=== PATIENT | female | born 1985 | race Caucasian/White ===

== ENCOUNTER → 2016-11-30 | Outpatient (CLI) | payer BC | LOC: LABWHC1 13:50 | PROVIDERS: ATTEND Obstetrics & Gynecology | DX: Z01.812 Encounter for preprocedural laboratory examination (principal) | CPT/HCPCS: 85025; 86850; 86900; 86901 ==

== ENCOUNTER 2016-12-01 07:55 | Day surgery (SDC) | payer BC ==
[2016-11-27 08:38] VITALS: BMI 28.3
[2016-11-30 17:28] LABS: Basophils # (A) 0.1 k/uL (0-0.2); Basophils % (A) 1 %; CH 32.2; CHCM 35.8; Eosinophils % (A) 0 %; HCT 40.6 % (34.0-46.0); HDW 2.67; HGB 14.1 gm/dL (11.4-16.0); Luc # (Auto) 0.07; Luc % (Auto) 1; Lymphocytes # (A) 2.2 k/uL (1.0-4.8); Lymphocytes % (A) 30 %; MCH 31.5 pg (25.0-35.0); MCHC 34.8 g/dL (31.0-37.0); MCV 90.4 fL (80.0-100.0); Mean Platelet Volume 7.2; Monocytes # (A) 0.3 k/uL (0-1.0); Monocytes % (A) 4 %; Neutrophils # (A) 4.7 k/uL (1.3-7.7); Neutrophils % (A) 64 %; RBC 4.49 m/uL (3.80-5.40); RDW 13.6 % (11.5-15.5); WBC 7.4 k/uL (3.8-10.6); WBC (Perox) 7.97
--- NOTE | 2016-11-30 18:20 | HP ---
DATE OF ADMISSION: This is a 31-year-old female 3 para 0-0-2-0 at 7-6/7 weeks gestation via ultrasound. The patient presents for D&C for missed AB. Sonogram on 11/10 revealed the presence of intrauterine gestation at 7-6/7 weeks gestation with no heart rate. The patient has been waiting for spontaneous passage of tissue which has not occurred. At this time she denies vaginal bleeding or cramping. She is electing to proceed at this time with surgical uterine evacuation via D&C. The risks, benefits, and alternatives of this procedure have been discussed with her in detail. PAST MEDICAL HISTORY: Significant for childhood asthma, phlebitis of the left leg, and mild spina bifida occulta. PAST SURGICAL HISTORY: D&C 2012, D&C earlier in 2015 for a partial molar . Right knee arthroscopy 2001, voluntary termination of in 2012. CURRENT MEDICATIONS: 1. vitamin daily. 2. Vitamin D oral capsule daily. 3. Transderm scope patch on an as needed. ALLERGIES INCLUDE ADHESIVE TAPE TO WHICH SHE REPORTS A RASH, BIAXIN TO WHICH SHE REPORTS HIVES AND MAXALT, WHICH REPORTS SHORTNESS OF BREATH. FAMILY HISTORY: Significant for Alzheimer's disease, atrial flutter, hypertension, colon cancer, and rheumatoid arthritis. SOCIAL HISTORY: Occasional alcohol use, none since , she denies tobacco or any recreational drug use. She works for [employer]. She is . Review of systems is otherwise negative. On exam, this is a pleasant female, she is 173 pounds, 5 feet 4.25 inches. The HEENT exam is negative. The chest is clear in all saunders anteriorly and posteriorly. The cardiac exam reveals regular rate and rhythm without murmur, click or rub. The extremities reveal no edema. The breast exam reveals breasts to be bilaterally symmetric to inspection with no skin dimpling, nipple discharge or axillary adenopathy. On pelvic exam reveals closed, firm cervix, uterus is approximately 8 weeks' size, anteverted, anteflexed. Adnexa are negative bilaterally. There is no pain to pelvic examination. EXTERNAL GENITALIA: Well estrogenized and age appropriate. IMPRESSION: 7-6/7 weeks' intrauterine with missed documented sonographically. Patient choosing surgical evacuation of the uterus at this time. Blood type is AB+. PLAN: We will proceed with suction dilatation and curettage of the uterine cavity. The patient is aware of the risks, benefits, and alternatives of this plan. She has had a D&C before and understands the procedure, the most likely intraoperative as well as postoperative courses. Second opinion is offered and declined.
[~2016-12-01 07:55] MED LIST: DEXAMETHASONE SOD PHOSPHATE 10 MG/ML 1 ML VIAL IV ONE; HYDROmorphone 1 MG/ML 1 ML SYRINGE IVP PRN; LACTATED RINGERS 1,000 ML IV SCH; Pre Op ABX Message 1 EACH MISC MISCELLANE ONE
[2016-12-01 08:32] VITALS: RESP 16
[2016-12-01] MEDS: ONDANSETRON 4 MG/2 ML VIAL IVP ONE ×2 (08:37→09:33)
[2016-12-01] MEDS ORDERED: LIDOCAINE 1% 20 ML VIAL (10MG/ML) FOR IV START INTRADERMA ONE (08:37)
[2016-12-01] MEDS ORDERED: SCOPOLAMINE 1.5MG/72HR PATCH TRANSDERM ONE (08:38)
[2016-12-01] MEDS ORDERED: PROPOFOL 10 MG/ML 20 ML VIAL IV ONE (08:55)
[2016-12-01] MEDS ORDERED: fentaNYL (PF) 50 MCG/ML 2 ML AMP ONE (08:55)
[2016-12-01] MEDS ORDERED: MIDAZOLAM 2 MG/2 ML VIAL ONE (08:55)
[2016-12-01] MEDS ORDERED: KETOROLAC 30 MG/ML 1 ML VIAL ONE (08:55)
[2016-12-01] MEDS ORDERED: LIDOCAINE 1% INJ 10MG/ML (20 ML MDV) ONE (08:55)
[2016-12-01 09:26] VITALS: TEMP 97.3
--- NOTE | 2016-12-01 09:27 | P.OP ---
Date of Procedure: 12/01/16 Preoperative Diagnosis: Missed AB, Rh+ Postoperative Diagnosis: Same Procedure(s) Performed: Suction dilatation and curettage of the uterus Implants: Anesthesia: YOLANDAA Surgeon: Carey Jacobo Estimated Blood Loss (ml): 150 IV fluids (ml): 550 Urine output (ml): 100 Pathology: other (Intrauterine curettings) Condition: stable Disposition: PACU Indications for Procedure: Operative Findings: Description of Procedure: Patient is brought to the operating suite where general anesthetic is administered. She's placed in the dorsal lithotomy position. The cervix, vagina, perineum is all prepped and draped in usual sterile fashion. The appropriate timeout is performed to assure proper patient and procedural identification. Bladder is drained for approximately 100 mL of clear yellow urine. Examination under anesthesia reveals an anteverted uterus that is approximately 12 weeks size, mobile and smooth. Adnexa are negative bilaterally. Weighted speculum was placed into the vagina. The anterior lip of the cervix is grasped with a double-tooth tenaculum. The cervix easily admitted the uterine sound, 14 cm sounding is noted in the anteverted position. The cervix is then gently and systematically dilated using Hanks dilators. A # 8 curved curet is placed to the dome of the fundus. Under appropriate suction pressures the uterus is curettaged thoroughly. A large amount of tissue and fluid is obtained. A medium sharp curette is used to assure that all tissue is removed in all 4 quadrants. The suction curette is then once again placed and cavity is noted to be clear. No intrauterine septa or defects or fibroids are appreciated. All sponge needle and enhancement counts are correct at the end of this procedure. Patient is brought back to the recovery room in very good condition with stable vital signs including blood pressure 99/51, pulse 65, respirations 16, 98% O2 saturation. She is given Toradol prior to leaving the operative suite. Blood type is AB+. She will follow-up in the office in 2 weeks, instructions written.
[2016-12-01 10:51] VITALS: BP 112/61; PULSE 60
== END 2016-12-01 11:10 | disposition home or self-care (01) ==
LOC: OR 07:55
PROVIDERS: ATTEND Obstetrics & Gynecology
DX: O02.1 Missed abortion (principal); Z3A.01 Less than 8 weeks gestation of pregnancy; Z67.30 Type AB blood, Rh positive; Z79.899 Other long term (current) drug therapy; Z88.1 Allergy status to other antibiotic agents; Z88.8 Allergy status to other drugs, medicaments and biological substances; Z91.048 Other nonmedicinal substance allergy status
CPT/HCPCS: 59820; 86900; 86901; 88305; 85025; 86850; J2250; J1100; J2405; J2001; J3010; J1885; J2704

== ENCOUNTER → 2016-12-24 | Outpatient (CLI) | payer BC | END | disposition home or self-care (01) | LOC: LABWHC1 10:21 | PROVIDERS: ATTEND Obstetrics & Gynecology | DX: O02.0 Blighted ovum and nonhydatidiform mole (principal); Z3A.00 Weeks of gestation of pregnancy not specified | CPT/HCPCS: 36415; 84702 ==

== ENCOUNTER → 2016-12-31 | Outpatient (CLI) | payer BC | END | disposition home or self-care (01) | LOC: LABWHC1 09:20 | PROVIDERS: ATTEND Obstetrics & Gynecology | DX: O02.0 Blighted ovum and nonhydatidiform mole (principal) | CPT/HCPCS: 36415; 84702 ==

== ENCOUNTER → 2017-01-07 | Outpatient (CLI) | payer BC | END | disposition home or self-care (01) | LOC: LABWHC1 10:43 | PROVIDERS: ATTEND Obstetrics & Gynecology | DX: O02.0 Blighted ovum and nonhydatidiform mole (principal); Z3A.00 Weeks of gestation of pregnancy not specified | CPT/HCPCS: 36415; 84702 ==

== ENCOUNTER → 2017-01-14 | Outpatient (CLI) | payer BC | END | disposition home or self-care (01) | LOC: LABWHC1 08:48 | PROVIDERS: ATTEND Obstetrics & Gynecology | DX: O02.0 Blighted ovum and nonhydatidiform mole (principal); Z3A.00 Weeks of gestation of pregnancy not specified | CPT/HCPCS: 36415; 84702 ==

== ENCOUNTER → 2017-02-18 | Outpatient (CLI) | payer BC | END | disposition home or self-care (01) | LOC: LABWHC1 09:20 | PROVIDERS: ATTEND Obstetrics & Gynecology | DX: O02.0 Blighted ovum and nonhydatidiform mole (principal) | CPT/HCPCS: 36415; 84702 ==

== ENCOUNTER → 2017-03-22 | Outpatient (CLI) | payer BC | END | disposition home or self-care (01) | LOC: LABWHC1 12:18 | PROVIDERS: ATTEND Obstetrics & Gynecology | DX: O02.0 Blighted ovum and nonhydatidiform mole (principal); Z3A.00 Weeks of gestation of pregnancy not specified | CPT/HCPCS: 36415; 84702 ==

== ENCOUNTER → 2017-04-19 | Outpatient (CLI) | payer BC | END | disposition home or self-care (01) | LOC: LABWHC1 13:34 | PROVIDERS: ATTEND Obstetrics & Gynecology | DX: O02.0 Blighted ovum and nonhydatidiform mole (principal) | CPT/HCPCS: 36415; 84702 ==

== ENCOUNTER 2018-02-12 05:05 | Inpatient (IN) | payer BC ==
[2018-02-12] MEDS ORDERED: ceFAZolin IN SWFI 2 GM/20 ML SYRINGE IVP ONE (05:24)
[2018-02-12] MEDS ORDERED: CITRIC ACID-SODIUM CITRATE 15 ML CUP PO ONE (05:24)
[2018-02-12] MEDS ORDERED: LACTATED RINGERS 1,000 ML IV ONE (05:24)
[2018-02-12 06:09] LABS: Basophils % (A) 0 %; Eosinophils # (A) 0.1 k/uL (0-0.7); Eosinophils % (A) 0 %; HCT 37.2 % (34.0-46.0); HGB 12.4 gm/dL (11.4-16.0); Lymphocytes # (A) 1.7 k/uL (1.0-4.8); Lymphocytes % (A) 7 %; MCH 29.4 pg (25.0-35.0); MCHC 33.5 g/dL (31.0-37.0); MCV 87.8 fL (80.0-100.0); Mean Platelet Volume 7.8; Monocytes # (A) 0.8 k/uL (0-1.0); Monocytes % (A) 3 %; Neutrophils # (A) 21.2 k/uL (1.3-7.7); Neutrophils % (A) 89 %; Platelet Count 309 k/uL (150-450); RBC 4.24 m/uL (3.80-5.40); RDW 14.4 % (11.5-15.5); WBC 23.9 k/uL (3.8-10.6)
[2018-02-12] MEDS: LACTATED RINGERS 1,000 ML IV SCH (06:37)
[2018-02-12] MEDS ORDERED: PHENYLEPHRINE-0.9% NACL SYG 1 MG/10 ML SYRINGE ONE (07:11)
[2018-02-12] MEDS ORDERED: NALBUPHINE 10 MG/ML AMPUL ONE (07:11)
[2018-02-12] MEDS ORDERED: MORPHINE SULFATE (PF) 0.3 MG/0.3 ML SYR ONE (07:11)
[2018-02-12] MEDS ORDERED: OXYTOCIN 10 UNIT/ML 1 ML VIAL ONE (07:11)
[2018-02-12] MEDS ORDERED: MIDAZOLAM 2 MG/2 ML VIAL ONE (07:11)
--- NOTE | 2018-02-12 08:32 | P.HPOB ---
History of Present Illness H&P Date: 02/12/18 Chief Complaint: IUP 40 1/7 weeks, arrest of 1st stage of labor This is a 32 yo that presents from home with c/o SROM since 02/11. 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 she states SROM yielded clear fluid. Review of Systems Constitutional: Denies fever Past Medical History Past Medical History: Asthma Additional Past Medical History / Comment(s): CHILHOOD ASTHMA History of Any Multi-Drug Resistant Organisms: None Reported Past Surgical History: Orthopedic Surgery Additional Past Surgical History / Comment(s): D&C, RIGHT KNEE ARTHROSCOPIC, WISDOM TEETH Past Anesthesia/Blood Transfusion Reactions: Motion Sickness, Postoperative Nausea & Vomiting (PONV) Smoking Status: Never smoker - Past Family History Mother Family Medical History: No Reported History Medications and Allergies Home Medications Medication Instructions Recorded Confirmed Type No Known Home Medications [No 11/27/16 02/12/18 History Known Home Medications] Allergies Allergy/AdvReac Type Severity Reaction Status Date / Time adhesive tape Allergy Rash/ Verified 11/27/16 08:34 clarithromycin [From Biaxin] Allergy Rash/Hives Verified 11/27/16 08:34 rizatriptan benzoate Allergy Dyspnea Verified 11/27/16 08:34 [From Maxalt] Exam Osteopathic Statement: *. No significant issues noted on an osteopathic structural exam other than those noted in the History and Physical/Consult. - Vital Signs Vital signs: Intake and Output 02/11/18 02/11/18 02/12/18 14:59 22:59 06:59 Other: Weight 97.522 kg - OBG Physical Exam Cervix: anterior lip, 0 station Uterus: enlarged Results Result Diagrams: 02/12/18 05:52 Assessment and Plan (1) Term Current Visit: Yes Status: Acute Code(s): Z34.80 - ENCOUNTER FOR SUPRVSN OF NORMAL , UNSP TRIMESTER SNOMED Code(s): 43856926 (2) GBS screening not performed Current Visit: Yes Status: Acute Code(s): YYH4645 - SNOMED Code(s): 319668509 (3) Arrested active phase of labor Narrative/Plan: plan LTCS given her arrest of 1 stage of labor and length of time since ROM. anesthesia aware surgery reviewed and risk discussed including but not limited to infection bleeding damage to bladder bowel, or ureteric injury. infomred consent obtained Current Visit: Yes Status: Acute Code(s): O62.1 - SECONDARY UTERINE INERTIA SNOMED Code(s): 84056233
--- NOTE | 2018-02-12 08:40 | P.OP ---
Date of Procedure: 02/12/18 Preoperative Diagnosis: IUP at 40 1/7 weeks, arrest of first stage of labor, group beta strep unknown, attempted home delivery, failed Postoperative Diagnosis: Same plus meconium-stained fluid Procedure(s) Performed: Primary low transverse section Anesthesia: spinal Surgeon: Lenka Deleon Clinical Biochemist #1: Fransico Jeff Estimated Blood Loss (ml): 600 IV fluids (ml): 800 Urine output (ml): 300 Pathology: none sent (Patient request to take her placenta home despite meconium staining) Condition: stable Disposition: observation Indications for Procedure: Arrest of first stage of labor Operative Findings: Normal uterus tubes and ovaries were appreciated, meconium fluid was noted upon entering the uterine cavity, meconium-stained placenta was noted in addition. Male infant was born at 750 with a weight of 7 lbs. 15 oz. with Apgars of Description of Procedure: The patient was prepped and draped in the usual fashion after spinal anesthesia was administered by Dr. Fink. A Pfannenstiel incision was made and extended of the abdominal cavity without difficulty. The bladder peritoneum was elevated and incised and reflected distally. A 2 cm incision was made in the transverse plane of the lower uterine segment to enter the uterus at which time clear fluid was noted. The incision was extended in both directions bluntly. The head was encountered within the field and delivered up and through the incision where the nose and mouth were thoroughly suctioned. Remainder of the was delivered onto the surgical field where the cord was doubly clamped, cut, and the infant was passed for resuscitative measures with weight and Apgars as noted above. A segment of cord was then doubly clamped, cut, and cord blood banking kit was then obtained epr pt request. The placenta was delivered manually, intact, and was grossly normal, meconium staining noted with a grossly normal three-vessel cord. The uterus was exteriorized and the interior cavity of the uterus swept of any remaining placental and membranous fragments with a laparotomy sponge. The margins of the incision were grasped with allis clamps and the incision closed in 2 layers. First layer was a running locking layer of 0 vicryl from margin to margin followed by a second layer of imbricating 0 chromic catgut from margin to margin. bleeidng was noted int he left lower edge of the hysteromy incision, hemostasis was obtained with a figure of 8 suture. Any small points of bleeding were then made hemostatic with the Bovie. Once hemostasis was achieved, the posterior cul-de- sac was suctioned with a guard and the uterine and ovarian findings are as noted above. The uterus was replaced within the abdominal cavity and the gutters swept of any remaining blood fluid or clot. The incision was again reexamined and hemostasis was noted to be excellent. Any small point of bleeding were made hemostatic with the Bovie. Once hemostasis was achieved the parietal peritoneum was loosely reapproximated. The layer of muscles were examined and made hemostatic with the Bovie. Attention was then turned to the fascia which was closed with 2 running stitches of 0 Vicryl proceeding from the lateral margins to the midpoint. The subcutaneous tissues were irrigated, made hemostatic with the Bovie, and reapproximated with a running stitch of 30 vicryl. The skin was reapproximated with 4-0 vucryl tavares subcuticular fashion. Estimated blood loss for the case was approximately 700 mL. All sponge instrument and needle counts are correct. There were no complications. The patient tolerated the procedure well and proceeded to the recovery room in stable condition. Both mother and infant are resting comfortably in recovery.
[2018-02-12] MEDS ORDERED: OXYTOCIN 20 UNITS/1000 ML NS 1,000 ML IV SCH ×2 (11:15→12:00)
[2018-02-12 12:09] LABS: Hemoglobin A1C 5.3 % (4.0-6.0)
[2018-02-12 12:28] VITALS: BMI 36.8
[2018-02-13] MEDS ORDERED: LANOLIN CREAM 5 GM TUBE TOPICAL PRN (08:52)
[2018-02-13] MEDS ORDERED: diphenhydrAMINE 50 MG/ML 1 ML VIAL IVP PRN ×2 (08:52)
[2018-02-13] MEDS ORDERED: ACETAMINOPHEN IV (For NPO) 1,000 MG in EMPTY BAG 1 BAG IVPB STA (08:52)
[2018-02-13] MEDS ORDERED: ONDANSETRON 4 MG/2 ML VIAL IVP PRN (08:52)
[2018-02-13] MEDS ORDERED: diphenhydrAMINE 25 MG CAP PO PRN (08:52)
[2018-02-13] MEDS ORDERED: ZOLPIDEM 5 MG TAB PO PRN (08:52)
[2018-02-13] MEDS ORDERED: diphenhydrAMINE 50 MG CAP PO PRN (08:52)
[2018-02-13] MEDS ORDERED: METOCLOPRAMIDE 5 MG/ML 2 ML VIAL IVP PRN (08:52)
[2018-02-13] MEDS ORDERED: Acetaminophen-Codeine 300-30mg TAB PO PRN ×2 (08:52)
[2018-02-13] MEDS ORDERED: NALOXONE 0.4 MG/ML 1 ML VIAL IV PRN (08:52)
[2018-02-13] MEDS ORDERED: LACTATED RINGERS 1,000 ML IV SCH (09:00)
--- NOTE | 2018-02-13 09:04 | P.PNOBGPC ---
Subjective - Subjective Principal diagnosis: Postop day 1 status post low transverse section Interval history: Patient is postop day 1 status post low transverse section secondary to arrest of labor and failed home . Patient is complaining of a headache this morning, worse with standing better with laying. Of note spinal was a difficult insertion for the . Her blood pressure this morning was slightly elevated at 140s over 90s as expected it was elevated during labor in addition. She has voided without difficulty minimal ambulation secondary to headache, she would like something for pain for the headache. She is tolerating a regular diet without nausea or vomiting. Her lochia is minimal at this time. Patient reports: Reports appetite normal, Reports voiding normally, Reports pain well controlled, Reports ambulating normally (Headache is noted worse with standing better with laying) : doing well Objective - Vital Signs Latest vital signs: Vital Signs Temp Pulse Resp BP Pulse Ox 02/13/18 04:00 99.2 F 112 H 20 143/93 97 02/13/18 00:00 99.2 F 106 H 20 126/72 97 02/12/18 20:00 98.9 F 112 H 18 137/94 99 02/12/18 16:00 98.4 F 112 H 16 135/84 97 02/12/18 12:00 98.4 F 94 16 122/77 98 02/12/18 10:28 98.7 F 101 H 16 122/84 97 02/12/18 09:58 100 16 120/65 97 02/12/18 09:28 126 H 16 109/69 97 02/12/18 09:13 93 16 109/65 98 02/12/18 08:58 91 16 110/63 Intake and Output 02/12/18 02/13/18 02/13/18 22:59 06:59 14:59 Output Total 800 300 Balance -800 -300 Output: Urine 800 300 Uretheral (Guzmán) 600 Other: # Voids 1 - Exam Abdomen: Present: soft Incision: Present: normal, dry, intact Uterus: Present: firm Assessment and Plan (1) Term Current Visit: Yes Status: Acute Code(s): Z34.80 - ENCOUNTER FOR SUPRVSN OF NORMAL , UNSP TRIMESTER SNOMED Code(s): 79329901 (2) GBS screening not performed Current Visit: Yes Status: Acute Code(s): WGM7566 - SNOMED Code(s): 094973101 (3) Arrested active phase of labor Current Visit: Yes Status: Acute Code(s): O62.1 - SECONDARY UTERINE INERTIA SNOMED Code(s): 43693638 (4) S/P section Narrative/Plan: Will plan IV O Ofirmev for her headache. We'll ask anesthesia to come and evaluate for spinal headache. Patient can get in the shower today after dressing is removed this morning. Given her elevated blood pressure this morning we'll check preeclampsia labs. Current Visit: Yes Status: Acute Code(s): Z98.891 - HISTORY OF UTERINE SCAR FROM PREVIOUS SURGERY SNOMED Code(s): 579841228
[2018-02-13 09:55] LABS: ALT 26 U/L (9-52); AST 23 U/L (14-36); Blood Urea Nitrogen 8 mg/dL (7-17); LDH 698 U/L (313-618); Uric Acid 5.2 mg/dL (3.7-7.4)
[2018-02-13 09:57] LABS: HCT 28.6 % (34.0-46.0); MCH 29.6 pg (25.0-35.0); MCHC 33.7 g/dL (31.0-37.0); MCV 87.9 fL (80.0-100.0); Mean Platelet Volume 7.4; Platelet Count 257 k/uL (150-450); RBC 3.25 m/uL (3.80-5.40); RDW 14.6 % (11.5-15.5); WBC 13.6 k/uL (3.8-10.6)
[2018-02-13 10:00] LABS: HGB 9.6 gm/dL (11.4-16.0)
[2018-02-13] MEDS: LACTATED RINGERS 1,000 ML IV SCH ×5 (10:20→10:23)
[2018-02-13] MEDS ORDERED: MAGNESIUM SULFATE-WATER PMX 4 GM in WATER FOR INJECTION 50 50ML.BAG IVPB ONE (17:33)
[2018-02-13] MEDS ORDERED: LABETALOL 5 MG/ML VIAL MDV IVP STA (17:39)
[2018-02-13] MEDS ORDERED: MAGNESIUM SULFATE-WATER PMX 20 GM in WATER FOR INJECTION 1 500ML.BAG IV SCH (17:45)
--- NOTE | 2018-02-13 18:05 | P.PN ---
Subjective Progress Note Date: 02/13/18 Principal diagnosis: POD # 1 LTCS, severe pre eclampsia based on BP Pt is doing well today, her ESTRADA from this morning is improving. she is very desirous of going home. she states pain is controlled, lochia is minimal infant is doing well at approx, 1750 BP were noted to consistently elevated 150-160/100-115. she continues to complain of ESTRADA but I do believe it is possibly a spinal ESTRADA. she has had elevated BP over today 130's/90's to 140's/90's. she is very resistant to discussion regarding her BP and staying tonight in the hospital. Her family feels I was aggressive, when I was discussing the need for her to stay until POD #2 this am. I reviewed all her risks at that time and that given her labor course and extended time of ROM with meconium I was worried about infection. I also discussed her BP at that time this am. She states I made her very upset at the time. The family is very involved with her care and her mother in law stood up and put her arm out in my direction to say " we arent going there again" when discussing this am conversation. I told them to consider my recommendations and tell us their decision. Objective - Vital Signs Vital signs: Vital Signs Temp 98.2 F 02/13/18 08:00 Pulse 125 H 02/13/18 08:00 Resp 16 02/13/18 08:00 BP 148/99 02/13/18 08:00 Pulse Ox 97 02/13/18 08:00 Intake & Output 02/12/18 02/13/18 02/13/18 18:59 06:59 18:59 Intake Total 2000 1000 Output Total 1600 500 Balance 400 -500 1000 Weight 97.522 kg Intake: IV 1200 Intake, IV Titration 800 1000 Amount Lactated Ringers 1,000 ml 800 @ 125 mls/hr IV .Q8H [facility]ALOM Rx#:[id number] Oxytocin 20 Units/1000 ml 1000 Ns 1,000 ml @ Per Protocol IV .Q0M SHALOM Rx#: [id number] Output: Urine 900 500 Uretheral (Guzmán) 600 Estimated Blood Loss 700 Other: # Voids 1 - Constitutional Constitutional Comment(s): upset, her family did do most of the talking for her. - Labs CBC & Chem 7: 02/13/18 09:26 02/13/18 09:26 Labs: Abnormal Lab Results - Last 24 Hours (Table) 02/13/18 02/13/18 Range/Units 09:26 09:26 WBC 13.6 H (3.8-10.6) k/uL RBC 3.25 L (3.80-5.40) m/uL Hgb 9.6 L D (11.4-16.0) gm/dL Hct 28.6 L (34.0-46.0) % Lactate Dehydrogenase 698 H (313-618) U/L Assessment and Plan (1) Term Current Visit: Yes Status: Acute Code(s): Z34.80 - ENCOUNTER FOR SUPRVSN OF NORMAL , UNSP TRIMESTER SNOMED Code(s): 19694922 (2) GBS screening not performed Current Visit: Yes Status: Acute Code(s): DWV4561 - SNOMED Code(s): 400343937 (3) Arrested active phase of labor Current Visit: Yes Status: Acute Code(s): O62.1 - SECONDARY UTERINE INERTIA SNOMED Code(s): 81234542 (4) S/P section Current Visit: Yes Status: Acute Code(s): Z98.891 - HISTORY OF UTERINE SCAR FROM PREVIOUS SURGERY SNOMED Code(s): 604263646 Plan: Dr Jacobo was her primary OB until she left the practice at around 28 weeks, I have called her and discussed this case with her. I don't feel given her reaction to me all day that we have a working relationship at all. I want her to have care and am hopeful she will be able to work with Dr. Jacobo. I have ordered Magnesium gtt given her BP and labetalol, but as states above she is unwilling at this time to consent to treatment.
--- NOTE | 2018-02-13 20:03 | P.PN ---
Subjective Progress Note Date: 02/13/18 Principal diagnosis: Postoperative day #1, headache, spinal headache versus preeclampsia. I was called to evaluate the patient per Dr. flores, felt that her effective communication with the patient for a variety of reasons had broken down. Patient states while lying on her left side she has a headache of 2-3 out of 10. When standing or sitting the headache as 10 out of 10. She denies visual changes, she denies right upper quadrant pain. Overall she states her pain is well-controlled. Objective - Vital Signs Vital signs: Vital Signs Temp 98.2 F 02/13/18 17:00 Pulse 133 H 02/13/18 17:00 Resp 18 02/13/18 17:00 BP 155/105 02/13/18 17:05 Pulse Ox 97 02/13/18 17:00 Intake & Output 02/13/18 02/13/18 02/14/18 06:59 18:59 06:59 Intake Total 1000 Output Total 500 Balance -500 1000 Intake: Intake, IV Titration 1000 Amount Oxytocin 20 Units/1000 ml 1000 Ns 1,000 ml @ Per Protocol IV .Q0M SHALOM Rx#: [id number] Output: Urine 500 Other: # Voids 1 - Constitutional General appearance: Present: cooperative, obese - EENT Eyes: Present: PERRLA ENT: Present: hearing grossly normal - Neck Neck: Present: normal ROM Thyroid: bilateral: normal size - Respiratory Respiratory: bilateral: CTA - Cardiovascular Rhythm: regular - Gastrointestinal General gastrointestinal: Present: normal bowel sounds - Genitourinary Genitourinary Comment(s): Low transverse incision well approximated, clean and dry. Fundus firm, nontender, mobile, 18 week size. - Integumentary Integumentary Comment(s): 2+ lower extremity edema, pitting. Reflexes 2-3+, slightly brisk. No clonus. Integumentary: Present: normal - Neurologic Neurologic: Present: CNII-XII intact - Musculoskeletal Musculoskeletal: Present: strength equal bilaterally - Psychiatric Psychiatric: Present: A&O x's 3, appropriate affect - Labs CBC & Chem 7: 02/13/18 09:26 02/13/18 09:26 Labs: Abnormal Lab Results - Last 24 Hours (Table) 02/13/18 02/13/18 Range/Units 09:26 09:26 WBC 13.6 H (3.8-10.6) k/uL RBC 3.25 L (3.80-5.40) m/uL Hgb 9.6 L D (11.4-16.0) gm/dL Hct 28.6 L (34.0-46.0) % Lactate Dehydrogenase 698 H (313-618) U/L Assessment and Plan Assessment: Postoperative day #1, strongly suspect spinal headache. -induced hypertension. Plan: I had a long discussion at the bedside with the patient, her [id number], and her Stuart. I believe it is a reasonable plan to have the anesthesia staff attempt a blood patch. I have spoken with Dr. Fink, who reports that he had a very difficult time with the spinal yesterday at the time of section. However, he is willing to come up and reassess the patient at this time for potential blood patch. I've discussed with the patient the risks and benefits of blood patch, along with the possibility that it may not be able to be successfully placed, or that once placed it may not be effective clinically. In addition, we will begin Procardia 60 mg XL at this time orally. I've encouraged the patient to increase her oral fluids as I believe she is clinically dry. We will continue to monitor her blood pressure, pulse, and symptomatology through the evening. Possible discharge home tomorrow. All questions answered, nursing staff in attendance at the time of our discussion. I believe the patient and her as well as her [id number] understand and accept the risks as outlined above. All questions addressed to mutual satisfaction. Time with Patient: Greater than 30
[2018-02-13] MEDS: ACETAMINOPHEN TAB 325 MG TAB PO PRN (20:07)
--- NOTE | 2018-02-13 21:05 | P.PN ---
Progress Note - Text Date:02/13 Time:1839 Patient is status post . Patient seen this morning with VAS score of 2.no c/o of pruritus, patient had complains of postural headache and it was probably due to spinal that she had for . She was offered supportive care with IV caffeine . I couldn't start the caffeine because her blood pressure was running high. I decided to wait until the morning and then make a decision if she needed up epidural blood patch.
--- NOTE | 2018-02-13 21:10 | P.PN ---
Progress Note - Text 02/13 2030 I received a phone call from Dr. Reid were wanted me to consider epidural blood patch before she started the patient on magnesium. I had a discussion with the patient and her family and we decided to try and see if I could do the blood patch. Procedure note. I had the patient sitting up, her back was prepped and draped in a sterile fashion. Xylocaine 1% 4 mL was used at L3 4 for local anesthesia. 18-gauge Touhy needle was inserted with loss of resistance, I abhilash her blood about 15 mL from her left antecubital after a sterile prep with chlorhexidine. Blood was injected into the epidural space and the patient felt an immediate relief of pain in the neck muscles. Band-Aid was applied and the patient was instructed to rest and increase her fluid intake. Plan to see her in the morning and evaluate her for headache
[2018-02-13] MEDS: IBUPROFEN 600 MG TAB PO PRN (22:14)
[2018-02-14] MEDS: ACETAMINOPHEN TAB 325 MG TAB PO PRN ×3 (00:18→17:32)
[2018-02-14] MEDS: SENNOSIDES-DOCUSATE SODIUM 1 EACH TAB PO SCH ×3 (00:27→21:25)
[2018-02-14 05:54] VITALS: RESP 16
[2018-02-14] MEDS: IBUPROFEN 600 MG TAB PO PRN ×3 (07:57→20:53)
--- NOTE | 2018-02-14 10:08 | P.PN ---
Subjective Progress Note Date: 02/14/18 Principal diagnosis: Postoperative day #2 Patient slept intermittently. Headache is completely resolved. She denies right upper quadrant pain or visual changes. Pain is well-controlled with Motrin. Objective - Vital Signs Vital signs: Vital Signs Temp 98.1 F 02/14/18 08:00 Pulse 100 02/14/18 08:00 Resp 16 02/14/18 08:00 BP 145/84 02/14/18 08:00 Pulse Ox 99 02/14/18 04:00 Intake & Output 02/13/18 02/14/18 02/14/18 18:59 06:59 18:59 Intake Total 1000 500 Balance 1000 500 Intake: Intake, IV Titration 1000 Amount Oxytocin 20 Units/1000 ml 1000 Ns 1,000 ml @ Per Protocol IV .Q0M SHALOM Rx#: [id number] Oral 500 Other: # Voids 0 1 - Constitutional General appearance: Present: average body habitus, cooperative - EENT Eyes: Present: PERRLA ENT: Present: hearing grossly normal - Neck Neck: Present: normal ROM - Respiratory Respiratory: bilateral: diminished (Breath sounds slightly diminished at the bases bilaterally, otherwise clear) - Cardiovascular Rhythm: regular - Gastrointestinal Gastrointestinal Comment(s): Incision clean and dry, intact, well approximated. Fundus firm, midline, symmetric, 18 week size General gastrointestinal: Present: normal bowel sounds - Integumentary Integumentary Comment(s): 2 loss edema, pitting bilaterally. Reflexes 3+. Integumentary: Present: normal - Neurologic Neurologic: Present: CNII-XII intact - Musculoskeletal Musculoskeletal: Present: strength equal bilaterally - Psychiatric Psychiatric: Present: A&O x's 3, appropriate affect, intact judgment & insight - Labs CBC & Chem 7: 02/13/18 09:26 02/13/18 09:26 Assessment and Plan Plan: At this time the second dose of Procardia will be given. Blood pressure is improved, still 140s over 80s. In my best judgment. I feel the patient should remain in the hospital overnight for continued observation and blood pressure monitoring. Pulse is 100, improved but still mildly tachycardic. The patient is tearful upon our discussion, wishing to be discharged home. She is declining circumcision for her infant. We will continue postoperative care today. I am encouraging her to use the Tri-Flow for slightly diminished breath sounds bilaterally at the bases. She agrees to do so. Again my recommendation is for continued observation through tomorrow morning, and likely discharge home in the morning. Patient states she will consider this, but may exercise the option to be discharged home later tonight, AGAINST MEDICAL ADVICE. Time with Patient: Greater than 30
[2018-02-14] MEDS ORDERED: LABETALOL 200 MG TAB PO SCH (18:00)
[2018-02-14 18:20] LABS: Basophils % (A) 0 %; Eosinophils # (A) 0.1 k/uL (0-0.7); Eosinophils % (A) 1 %; HCT 33.5 % (34.0-46.0); HGB 11.2 gm/dL (11.4-16.0); Lymphocytes # (A) 2.7 k/uL (1.0-4.8); Lymphocytes % (A) 20 %; MCH 29.7 pg (25.0-35.0); MCHC 33.4 g/dL (31.0-37.0); Mean Platelet Volume 7.5; Monocytes # (A) 0.4 k/uL (0-1.0); Monocytes % (A) 3 %; Neutrophils # (A) 9.8 k/uL (1.3-7.7); Neutrophils % (A) 75 %; Platelet Count 343 k/uL (150-450); RBC 3.76 m/uL (3.80-5.40); RDW 14.7 % (11.5-15.5)
[2018-02-14 21:17] VITALS: TEMP 98.6
[2018-02-14 21:37] VITALS: BP 116/71; PULSE 104
--- NOTE | 2018-02-15 07:38 | DS ---
DISCHARGE SUMMARY DATE OF ADMISSION: 02/12/2018. DATE OF DISCHARGE: 02/14/2018. ADMITTING DIAGNOSES: 1. Limited care. 2. Prolonged second stage of labor. DISCHARGE DIAGNOSES: 1. Status post primary low transverse section. 2. -induced hypertension. 3. Postoperative spinal headache, now resolved. This is a 32-year-old white female, 3, para 0-0-2-0, who presented at 40 weeks gestation with an EDC of 02/12/2018. 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 She presented early Wednesday morning with a complaint of 8 hours of second stage of labor. On evaluation, cervix was noted to be 8 cm dilated. Discussion ensued and decision was made to proceed with primary low transverse section. She underwent a spinal with Duramorph analgesia and this was performed, she gave to a live born male infant, weighing 7 pounds 15 ounces. Please see both dictated history and physical and operative note for details. Postoperative, the patient became hypertensive and tachycardic. Her blood pressure bambi to the 160s over 110s area. Thorough discussion was had with the patient, the benefit of magnesium sulfate medication was reviewed. Patient refused this treatment. She was also noted to have a severe headache. Blood patch was performed per the anesthesia staff with immediate relief. She was started on Procardia 60 mg once daily and received 2 doses. Blood pressure improved, however, the patient continued to be tachycardic in the 120s. I discussed the case with her primary care physician, Dr. Scruggs, and we changed to labetalol 200 mg orally twice daily. The patient's postoperative hemoglobin went down to 9.6, repeat hemoglobin up to 11.2. WBCs 13.0, platelets 343,000, AST, ALT, and uric acid all normal. Most recent vital signs include a blood pressure of 115/71 and a pulse of 104. The patient denies headache, denies right upper quadrant pain or visual changes. She has 2+ edema and 2+ reflexes. The incision is clean and dry, intact, Steri-Strips applied. The fundus is firm and in the midline, symmetric and 18-week size. There is minimal lochia rubra noted. is going well. She has declined circumcision for her son. Analgesia is well controlled with ibuprofen products. Although my inclination would be to have the patient spend one additional evening for vital sign monitoring, she is adamantly wishing to be discharged home. I am therefore discharging her home in good condition with instructions to follow up with me in the office in 1 week. She has a sphygmomanometer at home and will take her blood pressures daily and record them. She will call me with any systolic pressures greater than or equal to 140, or diastolic pressures greater than or equal to 90. She is also instructed to call with any headache, visual changes, or right upper quadrant pain. She will continue to use ibuprofen products as per label as needed for pain. I reviewed with her proper incisional care. is going well. The patient is to call with any unusual symptomatology. She states she will continue to follow up with her primary care physician Dr. Chilango Leonard as well. Continue taking vitamin daily. MMODL / IJN: [id number] /
== END 2018-02-14 21:20 | disposition home or self-care (01) | DRG 766 ==
LOC: FBPOP 05:05 → 4FBP 05:22
PROVIDERS: ADMIT Obstetrics & Gynecology Obstetrics; ATTEND Obstetrics & Gynecology Obstetrics
PROC: 10D00Z1 Extraction of Products of Conception, Low, Open Approach (ICD-10-PCS; principal; 2018-02-12 07:46)
PROC: 3E0R3GC Introduction of Other Therapeutic Substance into Spinal Canal, Percutaneous Approach (ICD-10-PCS; 2018-02-13)
DX: O62.1 Secondary uterine inertia (principal); J45.909 Unspecified asthma, uncomplicated; O74.5 Spinal and epidural anesthesia-induced headache during labor and delivery; O77.0 Labor and delivery complicated by meconium in amniotic fluid; O99.52 Diseases of the respiratory system complicating childbirth; O13.4 Gestational [pregnancy-induced] hypertension without significant proteinuria, complicating childbirth; Z37.0 Single live birth; Z3A.40 40 weeks gestation of pregnancy; Z88.1 Allergy status to other antibiotic agents; Z88.8 Allergy status to other drugs, medicaments and biological substances; Z91.048 Other nonmedicinal substance allergy status
CPT/HCPCS: 82565; 83036; 83615; 84450; 84460; 84520; 84550; 85025; 85027; 86850; 86900; 86901